=== PATIENT | female | born 1970 | race Caucasian/White ===

== ENCOUNTER 2017-04-06 01:06 | Emergency (ER) | payer MEDICAID, OTHER ==
[~2017-04-06] VITALS: Ht 160 cm; Wt 85.8 kg
[2017-04-06 01:34] VITALS: Ht 160 cm; Wt 85.8 kg
[2017-04-06] MEDS ORDERED: SOD CHLORIDE 0.9% 1,000 ML IV STA (02:46)
[2017-04-06] MEDS ORDERED: HYDROmorphONE 1 MG/ML SYG IV STA ×2 (02:46→03:30)
[2017-04-06] MEDS ORDERED: ONDANSETRON 4 MG INJ IV STA (02:46)
[2017-04-06 03:17] LABS: BASOPHIL # 0.1 10^3/ul (0.0-0.1); BASOPHILS % 0.4 % (0.0-2.0); EOSINOPHILS # 0.3 10^3/ul (0.0-0.5); EOSINOPHILS % 1.7 % (0.0-7.0); HEMATOCRIT 42.6 % (37.0-47.0); HEMOGLOBIN 13.9 g/dl (12.0-16.0); LYMPHOCYTES # 3.9 10^3/ul (0.8-2.9); LYMPHOCYTES % 21.3 % (15.0-51.0); MEAN CORPUSCULAR HGB CONC 32.6 g/dl (32.0-37.0); MEAN CORPUSCULAR VOLUME 88.8 fl (82.0-101.0); MEAN PLATELET VOLUME 10.3 fl (7.4-10.4); MONOCYTES % 5.3 % (0.0-11.0); NEUTROPHIL # 12.9 10^3/ul (1.6-7.5); NEUTROPHILS % 70.7 % (39.0-77.0); PLATELET COUNT 355 10^3/UL (140-415); RED CELL DISTRIBUTION WIDTH 13.8 % (11.5-14.5); WHITE BLOOD COUNT 18.1 10^3/ul (4.8-10.8)
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
[2017-04-06 03:37] LABS: CALCIUM 9.5 mg/dl (8.4-10.2); CREATININE 0.93 mg/dl (0.44-1.00); POTASSIUM 3.5 mmol/L (3.5-5.1)
[2017-04-06 03:40] LABS: INR 0.82; PROTIME 11.4 Sec (11.9-14.9); PT RATIO 0.9
[2017-04-06] MEDS ORDERED: IBUP-1542 PO (05:00)
[2017-04-06] MEDS ORDERED: OXYC-279 PO (05:00)
[2017-04-06 05:31] VITALS: BP 141/93; PULSE 74; RESP 20; TEMP 98.1
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
== END 2017-04-06 05:33 | disposition home or self-care (01) ==
LOC: E/R 01:06
DX: S42.292A Other displaced fracture of upper end of left humerus, initial encounter for closed fracture (principal); J45.909 Unspecified asthma, uncomplicated; F17.210 Nicotine dependence, cigarettes, uncomplicated; Y08.89XA Assault by other specified means, initial encounter
CPT/HCPCS: 29105; 36415; 71010; 73060; 73080; 80048; 80306; 85025; 85610; 96374; 96375; 96376; 99284; J1170; J2405; J7030